=== PATIENT | female | born 1965 | race Caucasian/White ===

== ENCOUNTER 2022-12-22 11:56 | Day surgery (SDC) | payer MEDICAID ==
[~2022-12-22] VITALS: Ht 154.9 cm; Wt 70.8 kg
[~2022-12-22 11:56] MED LIST: IOPAMIDOL 50 ML VIAL IV ONE; IOPAMIDOL-M 300, 15 ML VIAL IT ONE; LIDOCAINE 2%, 20 ML MDV ONE; NORMAL SALINE 10 ML VIAL ONE; methylPREDNISolone ACETATE 40 MG/ML ONE
[2022-12-22] MEDS ORDERED: fentaNYL CITRATE/PF 100 MCG/2 ML AMP ONE (12:55)
[2022-12-22] MEDS ORDERED: DIPHENHYDRAMINE INJ 50 MG/ML VIAL ONE (12:55)
[2022-12-22] MEDS: MIDAZOLAM HCL 5 MG/5 ML VIAL ONE ×2 (13:21→13:26)
[2022-12-22 17:13] VITALS: BP_SYST 124; PULSE 56; RESP 18; TEMP 98.2; O2SAT 98
== END 2022-12-22 14:45 | disposition home or self-care (01) ==
LOC: SDS 11:56 → SMU 11:57 → SDS 14:45
PROVIDERS: ATTEND Internal Medicine
DX: M51.16 Intervertebral disc disorders with radiculopathy, lumbar region (principal)
CPT/HCPCS: 62323; J1200; J2001; J1030; J2250; J3010; Q9967; 76000